=== PATIENT | female | born 1955 | race Caucasian/White ===

== ENCOUNTER 2023-12-25 06:58 | Day surgery (SDC) | payer MEDICARE, OTHER ==
[2023-12-25] MEDS ORDERED: Midazolam 1 MG/ML 2 ML SDV IV ONE (06:59)
[2023-12-25] MEDS ORDERED: Propofol 200 MG/20 ML SDV IV ONE (06:59)
[2023-12-25] MEDS ORDERED: Sodium Chloride 0.9% 10 ML Syringe FLUSH PRN (07:00)
[2023-12-25] MEDS: Lactated Ringers 1,000 ML IV SCH (08:15)
[2023-12-25] MEDS: Simethicone Drops 40 MG/0.6 ML 30 ML Bottle ONE (08:32)
== END 2023-12-25 10:14 | disposition home or self-care (01) ==
LOC: FB.SDS 06:58
PROVIDERS: ATTEND Surgery
DX: K57.30 Diverticulosis of large intestine without perforation or abscess without bleeding (principal); K50.90 Crohn's disease, unspecified, without complications; I12.9 Hypertensive chronic kidney disease with stage 1 through stage 4 chronic kidney disease, or unspecified chronic kidney disease; E11.22 Type 2 diabetes mellitus with diabetic chronic kidney disease; N18.30 Chronic kidney disease, stage 3 unspecified; E78.5 Hyperlipidemia, unspecified; E03.9 Hypothyroidism, unspecified; Z87.891 Personal history of nicotine dependence; Z79.899 Other long term (current) drug therapy
CPT/HCPCS: A9270-GY; J2250; J2704; J7120